=== PATIENT | female | born 1965 | race Caucasian/White ===

== ENCOUNTER 2021-10-14 18:11 | Emergency (ER) | payer BC ==
[~2021-10-14] VITALS: Ht 157.5 cm; Wt 70.3 kg
[2021-10-14 18:24] VITALS: BP_SYST 137
[2021-10-14 19:40] LABS: BASOPHILS # (AUTO) 0.1 K/uL (0.0-0.2); BASOPHILS % (AUTO) 1.2 % (0.0-2.0); EOSINOPHILS # (AUTO) 0.1 K/uL (0.0-0.4); EOSINOPHILS % (AUTO) 2.4 % (0.0-4.0); HEMATOCRIT 35.5 % (36-48); HEMOGLOBIN 12.3 g/dL (12.0-16.0); LYMPHOCYTES # (AUTO) 2.2 K/uL (1.0-5.5); LYMPHOCYTES % (AUTO) 46.9 % (20.5-51.5); MEAN CORPUSCULAR HEMOGLOBIN 29 pg (27-31); MEAN CORPUSCULAR HGB CONC 35 % (32-36); MEAN CORPUSCULAR VOLUME 84 fL (79.0-98.0); MONOCYTES # (AUTO) 0.3 K/uL (0.0-1.0); MONOCYTES % (AUTO) 5.5 % (1.7-9.3); NEUTROPHILS # (AUTO) 2.1 K/uL (1.8-7.7); PLATELET COUNT (AUTO) 230 K/uL (130-430); RED BLOOD CELL COUNT(AUTO) 4.23 MIL/uL (4.2-6.2); RED CELL DISTRIBUTION WIDTH 13.5 % (9.0-15.0); WHITE BLOOD COUNT (AUTO) 4.7 K/uL (4.8-10.8)
[2021-10-14 19:58] LABS: ANION GAP 11 (5-15); CALCIUM 9.2 mg/dL (8.4-11.0); CHLORIDE 105 mmol/L (98-107); CREATININE 0.62 mg/dL (0.55-1.30); GLUCOSE 102 mg/dL (70-99); POTASSIUM 4.3 mmol/L (3.5-5.1); SODIUM SERUM 140 mmol/L (136-145); UREA NITROGEN, BLOOD 19 mg/dL (8-21)
[2021-10-14 20:03] LABS: ALANINE AMINOTRANSFERASE 42 U/L (12-78); AMYLASE 41 U/L (0-100); ASPARTATE AMINOTRANSFERASE 19 U/L (10-37); LIPASE 171 U/L (73-393); TOTAL BILIRUBIN 0.3 mg/dL (0.0-1.0)
[2021-10-14 20:11] LABS: BILIRUBIN,URINE NEGATIVE (NEGATIVE); CLARITY/URINE CLEAR (CLEAR); COLOR,URINE YELLOW (YELLOW); GLUCOSE,URINE NEGATIVE (NEGATIVE); KETONES,URINE NEGATIVE (NEGATIVE); LEUKOCYTE ESTERASE ,URINE NEGATIVE (NEGATIVE); NITRITE, URINE NEGATIVE (NEGATIVE); PH,URINE 5.5 (5.0-8.0); PROTEIN URINE NEGATIVE (NEGATIVE); UROBILINOGEN,URINE 0.2 (0.2-1.0)
[2021-10-14 20:14] LABS: BLOOD, URINE TRACE (NEGATIVE)
[2021-10-14 20:17] LABS: GFR AFRICAN AMERICAN 128 mL/min (>90)
[2021-10-14 20:18] LABS: C-REACTIVE PROTEIN QUANT < 0.2 mg/dL (0-0.5)
[2021-10-14] MEDS ORDERED: IBUP-1969 PO (20:25)
[2021-10-14] MEDS ORDERED: HYDR-3917 PO (20:25)
[2021-10-14 20:35] LABS: BACTERIA,URINE None Seen /HPF (None Seen); MUCUS,URINE None Seen /LPF (None Seen); RBC,URINE 0-3 /HPF (0-3); WBC,URINE NONE SEEN /HPF (0-3)
[2021-10-14 20:40] VITALS: BP_SYST 127
== END 2021-10-14 20:40 | disposition home or self-care (01) ==
LOC: SED 18:11
DX: R10.32 Left lower quadrant pain (principal); I10 Essential (primary) hypertension; E78.5 Hyperlipidemia, unspecified; Z79.899 Other long term (current) drug therapy
CPT/HCPCS: 36415; 76376; 80053; 81000; 82150; 83605; 83690; 85025; 86140; 99284